=== PATIENT | male | born 1965 | race Caucasian/White ===

== ENCOUNTER 2017-11-08 18:25 | Observation (INO) | payer BC ==
[~2017-11-08] VITALS: Ht 175.3 cm; Wt 81.5 kg
[2017-11-08 18:57] LABS: HEMATOCRIT 40.6 % (38.0-50.0); HEMOGLOBIN 14.9 G/DL (12.5-16.6); MCH 33.5 PG (29.0-34.0); MCHC 36.7 G/DL (30.0-36.0); MCV 91.2 FL (86-99); PLATELET COUNT 201 K/uL (156-360); RBC DIS.WIDTH-CV 11.9 % (11.8-14.6); RBC DIS.WIDTH-SD 39.8 % (39-53); RED BLOOD COUNT 4.45 M/uL (4.00-5.50); WHITE BLOOD COUNT 11.7 K/uL (4.1-10.2)
[2017-11-08 19:05] LABS: ALBUMIN 4.2 g/dL (3.2-4.8); CHLORIDE 106 mEq/L (99-109); POTASSIUM 4.1 mEq/L (3.7-5.4); SODIUM 140 mEq/L (136-147)
[2017-11-08 19:07] LABS: GLUCOSE 119 mg/dL (70-99); TOTAL PROTEIN 7.7 g/dL (6.4-8.3)
[2017-11-08 19:09] LABS: TOTAL BILIRUBIN 1.7 mg/dL (0.0-1.0)
[2017-11-08 19:11] LABS: ALKALINE PHOSPHATASE 68 IU/L (3-129); CREATININE 1.8 mg/dL (0.6-1.3); GFR ESTIMATE (CALCULATED) 42 mL/min/ (58.99-99999)
[2017-11-08 19:12] LABS: UREA NITROGEN (BUN) 17 mg/dL (9-23)
[2017-11-08 19:13] LABS: AST (GOT) 19 IU/L (2-34)
[2017-11-08 19:14] LABS: ALT (GPT) 14 IU/L (3-49); LIPASE 11 U/L (1.0-51.0)
[2017-11-08 21:04] LABS: APPEARANCE CLEAR ((CLEAR)); BILIRUBIN NEGATIVE; BLOOD MODERATE; COLOR YELLOW ((YELLOW)); GLUCOSE (STRIP) NEGATIVE; KETONES 20; LEUKOCYTES NEGATIVE; NITRITE NEGATIVE; PROTEIN (STRIP) 30; SPECIFIC GRAVITY 1.025 (1.000-1.030); UROBILINOGEN 0.2 MG/DL (0.2-1.0)
[2017-11-08 21:24] LABS: BACTERIA RARE /HPF; EPITHELIAL CELLS NONE SEEN /HPF; MUCUS TRACE /LPF; UCUL ADDED? NO; WHITE BLOOD CELLS 0-5 /HPF (0-5)
[2017-11-08] MEDS ORDERED: ZOFRAN ODT8 MG PO (23:34)
[2017-11-08] MEDS ORDERED: CIPRO500 MG PO (23:34)
[2017-11-08] MEDS ORDERED: DIOVAN80 MG PO (23:35)
[2017-11-08] MEDS ORDERED: VITAMIN D31000 UNIT PO (23:35)
[2017-11-08] MEDS ORDERED: ASCORBIC ACID500 M3 PO (23:35)
[2017-11-08] MEDS ORDERED: HYDROCODON-ACE1 EAC7 PO (23:35)
[2017-11-08] MEDS ORDERED: CYANOCOBALAM1000 MCG PO (23:35)
[2017-11-08] MEDS ORDERED: IBUPROFEN600 MG PO (23:35)
[2017-11-09 02:37] VITALS: BP 122/66
[2017-11-09 05:32] LABS: BASOPHIL (%) 0.5 % (0-1); EOSINOPHIL (%) 1.7 % (0-5); EOSINOPHIL COUNT 0.1 K/uL (0-0.3); HEMATOCRIT 36.2 % (38.0-50.0); IMMATURE GRANULOCYTE (%) 0.5 % (0.0-0.7); LYMPHOCYTE (%) 18.4 % (15-42); LYMPHOCYTE COUNT 1.5 K/uL (1.0-2.8); MCH 32.2 PG (29.0-34.0); MCHC 34.5 G/DL (30.0-36.0); MCV 93.3 FL (86-99); MONOCYTE (%) 11.1 % (3-12); MONOCYTE COUNT 0.9 K/uL (0-0.8); NEUTROPHIL (%) 67.8 % (45-76); NEUTROPHIL COUNT 5.5 K/uL (1.8-6.4); PLATELET COUNT 172 K/uL (156-360); RBC DIS.WIDTH-CV 12.4 % (11.8-14.6); RBC DIS.WIDTH-SD 42.3 % (39-53); RED BLOOD COUNT 3.88 M/uL (4.00-5.50); WHITE BLOOD COUNT 8.1 K/uL (4.1-10.2)
[2017-11-09 05:40] LABS: HEMOGLOBIN 12.5 G/DL (12.5-16.6)
[2017-11-09 05:43] LABS: CHLORIDE 109 MEQ/L (99-109); CREATININE 1.4 MG/DL (0.6-1.3); GFR ESTIMATE (CALCULATED) 57 mL/min/ (58.99-99999); GLUCOSE 101 mg/dL (70-99); SODIUM 142 MEQ/L (136-147); UREA NITROGEN (BUN) 15 mg/dL (9-23)
[2017-11-09 07:48] VITALS: BP 107/62
[2017-11-09 12:13] VITALS: BP 116/81
[2017-11-09 14:58] VITALS: BP 96/52
[2017-11-09 20:23] VITALS: BP 130/84
[2017-11-10] VITALS: BP 116/66
[2017-11-10 08:30] VITALS: BP 125/79
[2017-11-10] MEDS ORDERED: TAMSULOSIN HCL0.4 MG PO (09:35)
[2017-11-10] MEDS ORDERED: KEFLEX500 MG PO (09:36)
== END 2017-11-10 10:50 | disposition home or self-care (01) ==
LOC: EXP 18:25 → EME 18:25 → EDOF 11-09 01:41 → 4SOUTH 11-09 01:41 → ENRESERV 11-09 01:44 → 4SOUTH 11-09 02:32
PROVIDERS: Hospitalist
DX: N13.2 Hydronephrosis with renal and ureteral calculous obstruction (principal); N17.9 Acute kidney failure, unspecified; M06.9 Rheumatoid arthritis, unspecified; I10 Essential (primary) hypertension; K59.00 Constipation, unspecified; J32.9 Chronic sinusitis, unspecified; Z83.3 Family history of diabetes mellitus; Z80.8 Family history of malignant neoplasm of other organs or systems; Z82.61 Family history of arthritis
CPT/HCPCS: 74019; 74176; 80048; 80053; 81003; 83690; 85025; 85027; G0378; J0696; J2405; J3010; J7030